=== PATIENT | male | born 1945 | race Caucasian/White ===

== ENCOUNTER 2024-06-25 00:10 | Inpatient (IN) | payer OTHER ==
[~2024-06-25] VITALS: Ht 167.6 cm; Wt 68.9 kg
[2024-06-25] MEDS ORDERED: hydrALAZINE HCL IV 20 MG VIAL ONE ×2 (00:30→02:01)
[2024-06-25] MEDS: hydrALAZINE HCL IV 20 MG VIAL IV ONE ×2 (00:37→02:06)
[2024-06-25 00:42] LABS: BASOPHILS % (AUTO) 0.8 % (0.0-2.0); EOSINOPHILS # (AUTO) 0.1 K/uL (0.0-0.7); EOSINOPHILS % (AUTO) 1.9 % (0.0-6.0); HEMATOCRIT 39 % (39-51); LYMPHOCYTES # (AUTO) 2.3 K/uL (0.8-4.8); LYMPHOCYTES % (AUTO) 38.4 % (20.0-44.0); MEAN CORPUSCULAR HEMOGLOBIN 32 PG (26.0-33.0); MEAN CORPUSCULAR HGB CONC 33 g/dl (31.0-36.0); MEAN CORPUSCULAR VOLUME 96 fL (80-96); MONOCYTES # (AUTO) 0.5 K/uL (0.1-1.30); MONOCYTES % (AUTO) 8.6 % (2.0-12.0); NEUTROPHILS % (AUTO) 50.3 % (43.0-81.0); PLATELET COUNT (AUTO) 173 K/uL (150-450); RED BLOOD CELL COUNT(AUTO) 4.09 MIL/uL (4.5-6.0); RED CELL DISTRIBUTION WIDTH 13.7 % (11.5-15.0)
[2024-06-25 00:58] LABS: CALCIUM, SERUM 8.8 mg/dL (8.5-10.1); CARBON DIOXIDE 22 mmol/L (21-32); CHLORIDE 107 mmol/L (98-107); CREATININE 0.8 mg/dL (0.6-1.3); GLUCOSE 114 mg/dL (74-106); POTASSIUM 3.7 mmol/L (3.5-5.1); SODIUM SERUM 140 mmol/L (136-145); UREA NITROGEN, BLOOD 25 mg/dL (7-18)
[2024-06-25 01:03] LABS: ALANINE AMINOTRANSFERASE 25 U/L (12-78); ALBUMIN 3.4 g/dL (3.4-5.0); ALKALINE PHOSPHATASE 54 U/L (46-116); ASPARTATE AMINOTRANSFERASE 21 U/L (15-37); BILIRUBIN,DIRECT 0.1 mg/dL (0.0-0.2); BILIRUBIN,TOTAL 0.7 mg/dL (0.2-1.0); TOTAL PROTEIN, SERUM 7.5 g/dL (6.4-8.2)
[2024-06-25 01:04] LABS: INR 0.97 (0.91-1.10); PARTIAL THROMBOPLASTIN TIME 28.8 SEC (24.3-34.3); PROTHROMBIN TIME 10.3 SECS (9.2-11.1)
[2024-06-25 02:38] LABS: APPEARANCE,URINE CLEAR (CLEAR); BILIRUBIN,URINE NEGATIVE (NEGATIVE); BLOOD, URINE NEGATIVE Ery/uL (NEGATIVE); COLOR,URINE YELLOW (YELLOW); KETONES,URINE NEGATIVE (NEGATIVE); LEUKOCYTE ESTERASE ,URINE NEGATIVE (NEGATIVE); NITRITE, URINE NEGATIVE (NEGATIVE); PH,URINE 6.5 (5.0-8.0); PROTEIN,URINE NEGATIVE (NEGATIVE); UGLUCOSE NEGATIVE (NEGATIVE); UROBILINOGEN,URINE 0.2 EU/dL (0.2)
[2024-06-25 03:00] VITALS: O2SAT 97
[2024-06-25] MEDS ORDERED: ONDANSETRON HCL/PF 4 MG/2 ML VIAL IVP PRN (03:00)
[2024-06-25] MEDS ORDERED: MORPHINE SULFATE INJ 2 MG/ML DISP.SYRIN IV PRN (03:00)
[2024-06-25] MEDS ORDERED: ACETAMINOPHEN 325 MG TABLET PO PRN (03:00)
[2024-06-25 03:20] VITALS: BP 173/81; TEMP 98.2; O2SAT 98
[2024-06-25] MEDS: IV NS 0.9% 1,000 ML IV SCH (04:36)
[2024-06-25] MEDS: hydrALAZINE HCL IV 20 MG VIAL IV PRN (05:06)
[2024-06-25] MEDS ORDERED: LOSA50TA39 PO (08:14)
[2024-06-25] MEDS ORDERED: LATA2.5D15 EACHEYE (08:14)
[2024-06-25 09:06] VITALS: BP 132/68; TEMP 98.6; O2SAT 97
[2024-06-25] MEDS: HEPARIN SODIUM, PORCINE 5000 UNITS/1 ML VIAL SQ SCH (09:52)
[2024-06-25] MEDS: IV NS 0.9% 1,000 ML IV PRN (15:55)
[2024-06-25 16:00] VITALS: BP 190/90; TEMP 98.1; O2SAT 98
[2024-06-25 20:00] VITALS: BP 183/83; TEMP 97.7; O2SAT 97
[2024-06-25] MEDS: LATANOPROST EYE DROP 0.005% 2.5 ML BOTTLE EACHEYE SCH (22:15)
[2024-06-26 05:00] VITALS: BP 147/70; TEMP 97.8; O2SAT 97
[2024-06-26 05:45] VITALS: BP 147/70
[2024-06-26 07:30] VITALS: BP 155/70; TEMP 98.2; O2SAT 96
[2024-06-26 07:42] LABS: BASOPHILS % (AUTO) 0.7 % (0.0-2.0); EOSINOPHILS # (AUTO) 0.1 K/uL (0.0-0.7); EOSINOPHILS % (AUTO) 2.1 % (0.0-6.0); HEMATOCRIT 37 % (39-51); HEMOGLOBIN 12.5 g/dL (13.5-17.5); LYMPHOCYTES # (AUTO) 1.6 K/uL (0.8-4.8); LYMPHOCYTES % (AUTO) 30.1 % (20.0-44.0); MEAN CORPUSCULAR HEMOGLOBIN 32 PG (26.0-33.0); MEAN CORPUSCULAR HGB CONC 34 g/dl (31.0-36.0); MEAN CORPUSCULAR VOLUME 95 fL (80-96); MONOCYTES # (AUTO) 0.5 K/uL (0.1-1.30); MONOCYTES % (AUTO) 8.9 % (2.0-12.0); NEUTROPHILS # (AUTO) 3.1 K/uL (1.8-8.9); NEUTROPHILS % (AUTO) 58.2 % (43.0-81.0); PLATELET COUNT (AUTO) 182 K/uL (150-450); RED BLOOD CELL COUNT(AUTO) 3.85 MIL/uL (4.5-6.0); WHITE BLOOD COUNT (AUTO) 5.4 K/uL (4.3-11.0)
[2024-06-26 08:02] LABS: ALANINE AMINOTRANSFERASE 21 U/L (12-78); ALBUMIN 2.9 g/dL (3.4-5.0); ALKALINE PHOSPHATASE 48 U/L (46-116); ASPARTATE AMINOTRANSFERASE 22 U/L (15-37); CALCIUM, SERUM 8.4 mg/dL (8.5-10.1); CARBON DIOXIDE 22 mmol/L (21-32); CHLORIDE 109 mmol/L (98-107); CREATININE 0.7 mg/dL (0.6-1.3); GLUCOSE 95 mg/dL (74-106); MAGNESIUM 2.4 mg/dL (1.8-2.4); PHOSPHORUS 3.2 mg/dL (2.5-4.9); POTASSIUM 3.7 mmol/L (3.5-5.1); SODIUM SERUM 140 mmol/L (136-145); TOTAL PROTEIN, SERUM 6.5 g/dL (6.4-8.2); UREA NITROGEN, BLOOD 17 mg/dL (7-18)
[2024-06-26 08:20] LABS: CHOLESTEROL 207 mg/dL (<200); HDL CHOLESTEROL 54 mg/dL (40-60); LDL 131 mg/dL (0-99); TRIGLYCERIDES 97 mg/dL (30-150)
[2024-06-26] MEDS: LOSARTAN POTASSIUM 50 MG TABLET PO SCH (08:42)
[2024-06-26] MEDS ORDERED: IV NS 0.9% 250 ML IV ONE ×2 (08:47→14:36)
[2024-06-26] MEDS ORDERED: IOHEXOL-350 100 ML VIAL IV ONE (08:47)
[2024-06-26] MEDS ORDERED: CT SWABBABLE VALVE TRANS SET 1 EA INFUS.SET MC ONE (14:36)
[2024-06-26] MEDS ORDERED: IOHEXOL-300 100 ML VIAL IV ONE (14:36)
[2024-06-26 16:00] VITALS: BP 191/78; TEMP 97.3; O2SAT 98
[2024-06-26] MEDS: ASPIRIN 325 MG TABLET PO SCH (16:15)
[2024-06-26 20:00] VITALS: BP 156/74; TEMP 98.6; O2SAT 97
[2024-06-26] MEDS: SIMVASTATIN 20 MG TABLET PO SCH (22:35)
[2024-06-27 07:00] VITALS: BP 149/65; TEMP 98.2; O2SAT 97
[2024-06-27 07:09] LABS: BASOPHILS % (AUTO) 0.6 % (0.0-2.0); EOSINOPHILS # (AUTO) 0.1 K/uL (0.0-0.7); EOSINOPHILS % (AUTO) 2.7 % (0.0-6.0); HEMATOCRIT 35 % (39-51); HEMOGLOBIN 11.9 g/dL (13.5-17.5); LYMPHOCYTES # (AUTO) 1.6 K/uL (0.8-4.8); LYMPHOCYTES % (AUTO) 32.9 % (20.0-44.0); MEAN CORPUSCULAR HEMOGLOBIN 32 PG (26.0-33.0); MEAN CORPUSCULAR HGB CONC 34 g/dl (31.0-36.0); MEAN CORPUSCULAR VOLUME 96 fL (80-96); MONOCYTES # (AUTO) 0.5 K/uL (0.1-1.30); MONOCYTES % (AUTO) 9.7 % (2.0-12.0); NEUTROPHILS # (AUTO) 2.7 K/uL (1.8-8.9); NEUTROPHILS % (AUTO) 54.1 % (43.0-81.0); PLATELET COUNT (AUTO) 171 K/uL (150-450); RED BLOOD CELL COUNT(AUTO) 3.68 MIL/uL (4.5-6.0)
[2024-06-27 08:00] LABS: CALCIUM, SERUM 8.8 mg/dL (8.5-10.1); CARBON DIOXIDE 21 mmol/L (21-32); CHLORIDE 110 mmol/L (98-107); CREATININE 0.8 mg/dL (0.6-1.3); GLUCOSE 92 mg/dL (74-106); MAGNESIUM 2.2 mg/dL (1.8-2.4); PHOSPHORUS 3.6 mg/dL (2.5-4.9); POTASSIUM 3.7 mmol/L (3.5-5.1); SODIUM SERUM 141 mmol/L (136-145); UREA NITROGEN, BLOOD 22 mg/dL (7-18)
[2024-06-27 16:00] VITALS: BP 199/83; TEMP 98; O2SAT 99
[2024-06-27 20:00] VITALS: BP 174/79; TEMP 97.9; O2SAT 98
[2024-06-28 00:20] VITALS: BP 121/60
[2024-06-28 08:00] VITALS: BP 152/80; TEMP 97.9; O2SAT 98
[2024-06-28 16:00] VITALS: BP 195/79; TEMP 97.9; O2SAT 98
[2024-06-28 20:00] VITALS: BP 180/82; TEMP 97.9; O2SAT 96
[2024-06-29 00:09] VITALS: BP 123/58
[2024-06-29 08:00] VITALS: BP 153/73; TEMP 98.1; O2SAT 98
[2024-06-29 16:07] VITALS: BP 184/63; TEMP 97.3; O2SAT 99
[2024-06-29 20:00] VITALS: BP 151/79; TEMP 97.7; O2SAT 98
[2024-06-29 23:09] VITALS: BP 180/71
== END 2024-06-29 23:35 | disposition short-term general hospital (02) | DRG 305 ==
LOC: ER 00:12 → TELE 03:01 → MED 09:59
PROVIDERS: ADMIT Student in an Organized Health Care Education/Training Program; ATTEND Student in an Organized Health Care Education/Training Program
DX: I16.0 Hypertensive urgency (principal); E44.0 Moderate protein-calorie malnutrition; I10 Essential (primary) hypertension; E86.0 Dehydration; D64.9 Anemia, unspecified; Z88.0 Allergy status to penicillin; I65.22 Occlusion and stenosis of left carotid artery; Z79.899 Other long term (current) drug therapy; R79.89 Other specified abnormal findings of blood chemistry; M47.812 Spondylosis without myelopathy or radiculopathy, cervical region; Z98.1 Arthrodesis status; Z79.82 Long term (current) use of aspirin; I65.21 Occlusion and stenosis of right carotid artery
CPT/HCPCS: 36415; 70450-TC; 70496-TC; 70498-TC; 71045-TC; 72126-TC; 80048-TC; 80053-TC; 80061-TC; 80076-TC; 82607-TC; 82962-TC; 83735-TC; 83921; 84100-TC; 84443-TC; 84484-TC; 85025-TC; 85730-TC; 93307-TC; 97116-TC; 97530-TC; A4223; G0378; J0360; J1644; J7030; J7050; Q9967